=== PATIENT | female | born 1985 | race Caucasian/White ===

== ENCOUNTER → 2020-12-11 | Outpatient (CLI) | payer OTHER ==
[~2020-12-11] MED LIST: ALPR0.5T PO; CARI350T PO; DEXT20TA2 PO
[2020-12-11 14:07] LABS: BASO % 0 % (0-3); EOS # 0.2 x10^3/uL (0.0-0.7); EOS % 2 % (0-3); HEMATOCRIT 42.9 % (36.0-47.0); HEMOGLOBIN 14.9 g/dL (12.0-15.5); LYMPH # 2.7 x10^3/uL (1.0-4.8); LYMPH % 28 % (24-48); MEAN CORPUSCULAR HEMOGLOBIN 32 pg (25-35); MEAN CORPUSCULAR HGB CONC 35 g/dL (31-37); MEAN CORPUSCULAR VOLUME 93 fL (79-100); MONO # 0.5 x10^3/uL (0.0-1.1); MONO % 6 % (0-9); NEUT # 6.2 x10^3/uL (1.8-7.7); NEUT % 65 % (31-73); PLATELET COUNT 233 x10^3/uL (140-400); RED CELL DISTRIBUTION WIDTH 12.9 % (11.5-14.5); WHITE BLOOD COUNT 9.6 x10^3/uL (4.0-11.0)
[2020-12-11 14:21] LABS: ALBUMIN/GLOBULIN RATIO 1.2 (1.0-1.7); CALCIUM 8.6 mg/dL (8.5-10.1); CREATININE 0.8 mg/dL (0.6-1.0); GFR 81.2; POTASSIUM 4.1 mmol/L (3.5-5.1); TOTAL BILIRUBIN 0.2 mg/dL (0.2-1.0); TOTAL PROTEIN 7.4 g/dL (6.4-8.2)
[2020-12-11 14:28] LABS: BILIRUBIN,URINE NEGATIVE (NEG); CLARITY,URINE CLOUDY; COLOR,URINE YELLOW; NITRITE,URINE NEGATIVE (NEG); PH,URINE 7.5 (<5.0-8.0); PROTEIN,URINE NEGATIVE (NEG-TRACE); UROBILINOGEN,URINE 0.2 mg/dL (0.2 mg/dL)
[2020-12-11 14:41] LABS: AMORPHOUS SEDIMENT,UR PRESENT /HPF
[2020-12-11 14:42] LABS: BACTERIA,URINE 0 /HPF (0-FEW); RBC,URINE 0 /HPF (0-2); WBC,URINE 0 /HPF (0-4)
== END ==
LOC: SURGPAT 12:58
PROVIDERS: ATTEND Obstetrics & Gynecology
DX: Z01.812 Encounter for preprocedural laboratory examination (principal); Z20.822 Contact with and (suspected) exposure to COVID-19
CPT/HCPCS: 80053; 81001; 85025; U0003; U0005

== ENCOUNTER 2020-12-17 06:29 | Observation (INO) | payer OTHER ==
[2020-12-11 13:57] VITALS: BP 118/65
[~2020-12-17] VITALS: Ht 157.5 cm; Wt 68.0 kg
[2020-12-17] VITALS (10 sets, daily range): BP systolic 85–121; BP diastolic 53–80
[~2020-12-17 06:29] MED LIST changes: +HYDROmorphone 2 MG/ML VIAL IVP PRN; +IV RINGERS,LACTATED 1000ML 1,000 ML IV SCH; +PROCHLORPERAZINE 10 MG/2 ML VIAL. IVP PRN; +fentaNYL PF VIAL 100 MCG/2 ML VIAL IVP PRN
[2020-12-17] MEDS ORDERED: BUPIVACAINE-EPI 0.25% 30 ML VIAL KIT. ONE (07:21)
[2020-12-17] MEDS ORDERED: INDIGOTINDISULFONATE SODIUM 40 MG/5 ML AMPUL. ONE (07:22)
[2020-12-17] MEDS ORDERED: ESTROGENS, CONJ VAGINAL CREAM 30GM TUBE. ONE (07:22)
[2020-12-17] MEDS ORDERED: ROCURONIUM 50 MG/5 ML VIAL. ONE (07:24)
[2020-12-17] MEDS ORDERED: MIDAZOLAM HCL/PF 2 MG/2 ML VIAL. ONE (07:37)
[2020-12-17] MEDS ORDERED: LIDOCAINE 2% PF 5 ML VIAL. ONE ×2 (08:12→10:08)
[2020-12-17] MEDS ORDERED: KETOROLAC 30 MG/ML VIAL. ONE (08:12)
[2020-12-17] MEDS ORDERED: PROPOFOL 10 MG/ML (20ML) VIAL. IV ONE (08:12)
[2020-12-17] MEDS ORDERED: SEVOFLURANE 61 TO 120 MINUTES. IH ONE (08:13)
[2020-12-17] MEDS ORDERED: ONDANSETRON PF 4 MG/2 ML VIAL. ONE (08:13)
[2020-12-17] MEDS ORDERED: DEXAMETHASONE SOD PHOS 4 MG/ML VIAL ONE (08:13)
[2020-12-17] MEDS ORDERED: ESMOLOL 100 MG/10 ML VIAL. IVP ONE (08:22)
[2020-12-17] MEDS ORDERED: fentaNYL PF VIAL 100 MCG/2 ML VIAL ONE (08:29)
[2020-12-17] MEDS ORDERED: GLYCOPYRROLATE 1 MG/5 ML VIAL. ONE (08:30)
[2020-12-17] MEDS ORDERED: NEOSTIGMINE METHYLSULFATE 5 MG/5 ML SYRINGE. ONE (08:30)
[2020-12-17] MEDS ORDERED: PHENYLEPHRINE in 0.9% NACL PF 1 MG/10 ML SYRINGE. IV ONE ×2 (08:34→09:46)
[2020-12-17] MEDS ORDERED: ePHEDrine PF IN SALINE 50 MG/10 ML SYRINGE. IV ONE (08:54)
[2020-12-17] MEDS ORDERED: MAG HYDROX/ALUMINUM HYD/SIMETH 30 ML ORAL.SUSP PO PRN (10:30)
[2020-12-17] MEDS ORDERED: LACTULOSE 20 GM/30 ML SOLUTION. PO PRN (10:30)
[2020-12-17] MEDS ORDERED: ONDANSETRON PF 4 MG/2 ML VIAL. IV PRN (10:30)
[2020-12-17] MEDS ORDERED: MAGNESIUM HYDROXIDE 2,400 MG/30 ML ORAL.SUSP. PO PRN (10:30)
[2020-12-17] MEDS ORDERED: NALOXONE 0.4 MG/ML VIAL. IV PRN (10:30)
[2020-12-17] MEDS ORDERED: MORPHINE SULFATE 2 MG/ML VIAL. IV PRN (10:30)
[2020-12-17] MEDS ORDERED: ZOLPIDEM 5 MG TABLET. PO PRN (10:30)
[2020-12-17] MEDS ORDERED: SIMETHICONE 80 MG TAB.CHEW PO PRN (10:30)
[2020-12-17] MEDS ORDERED: diphenhydrAMINE 50 MG/ML VIAL IV PRN (10:30)
[2020-12-17] MEDS ORDERED: CALCIUM CARBONATE 500 MG TAB.CHEW PO PRN (10:30)
[2020-12-17] MEDS ORDERED: diphenhydrAMINE HCL 25 MG CAPSULE PO PRN (10:30)
[2020-12-17] MEDS ORDERED: 0.9 % SODIUM CHLORIDE 10 ML DISP.SYRIN. IV PRN (10:30)
[2020-12-17] MEDS ORDERED: HYDROcodone/APAP 5/325MG 1 TAB TABLET PO PRN (10:30)
[2020-12-17] MEDS ORDERED: MORPHINE SULFATE 2 MG/ML VIAL. ONE ×2 (10:38→10:58)
[2020-12-17] MEDS: MORPHINE SULFATE 2 MG/ML VIAL. IVP PRN ×4 (10:40→11:11)
--- NOTE | 2020-12-17 10:40 | PDOC ---
BRIEF OPERATIVE NOTE Date: December 17, 2020 Pre-Op Diagnosis DENILSON 2 Post-Op Diagnosis same Procedure Performed LAVH with bilateral salpingectomy Surgeon Dr. Kimbrough Industrial Hygenist ELIU Hoffman Anesthesiologist Dr. Sánchez Anesthesia Type: General Blood Loss 350cc IV Fluid 1400cc Urine Output 130cc clear via woodall Specimens Obtained cervix, uterus, bilateral tubes Findings both tubes with fallop rings, normal uterus, normal appendix, grossly normal bowel Complications none Operative Note [id number] DIANE KIMBROUGH MD December 17, 2020 10:40
[2020-12-17] MEDS ORDERED: HYDROmorphone 2 MG/ML VIAL ONE (11:24)
--- NOTE | 2020-12-17 11:50 | OP ---
DATE OF SURGERY: 12/17/2020 PREOPERATIVE DIAGNOSIS: Cervical intraepithelial neoplasia 2 on colposcopy, desiring definitive therapy. POSTOPERATIVE DIAGNOSIS: Cervical intraepithelial neoplasia 2 on colposcopy, desiring definitive therapy. PROCEDURE: Laparoscopic-assisted vaginal hysterectomy, bilateral salpingectomy. SURGEON: Dr. Teresa Kimbrough. ELECTRON BEAM OPERATOR: ELIU Pedroza ANESTHESIOLOGIST: Syed Sánchez MD ANESTHESIA: General. ESTIMATED BLOOD LOSS: 350 mL. URINE OUTPUT: 130 mL cleared via Burden catheter. INTRAVENOUS FLUIDS: 1400 mL of crystalloid. SPECIMENS: Cervix, uterus and bilateral tubes. FINDINGS: Normal uterus, tubes and ovaries. Both tubes had evidence of prior tubal ligation with Falope rings. Normal appendix. Grossly normal bowel. COMPLICATIONS: None. No significant adhesive disease. DESCRIPTION OF PROCEDURE: The patient was taken to the operating room where general anesthesia was placed. The patient was placed in the dorsal lithotomy position in Andrea stirrups. The patient's abdomen and vagina were both prepped and draped in the normal sterile fashion and a Burden catheter had been inserted under sterile technique. Upon my arrival, once everyone agreed, a timeout was performed. Once everyone agreed on the patient, the site, the procedure, the antibiotics; the procedure was initiated. A bivalved speculum was placed in the patient's vagina. A single-tooth tenaculum was used to grasp the anterior lip of the cervix. A 10 mL of 0.25% Marcaine with epinephrine was used to circumferentially inject around the cervix for both hemodissection and hemostatic purposes later. The Valtchev uterine manipulator was placed through the endocervical os, locked on the single tooth tenaculum and the bivalve speculum was then removed. Top gloves were discarded and changed. Attention was then turned to the abdomen where a small infraumbilical skin incision was made. Prior to making the incision, it was then injected with 0.25% Marcaine with epinephrine injection. Then, a curved Narcisa was used to dissect through the subcuticular layer of the fascia. The 5 mm Visiport was used to directly enter the abdominal cavity. Opening patient pressure was 3-4 mmHg. Carbon dioxide gas was used to then appropriately insufflate the abdominal cavity to maintain a pressure of 15 mmHg. Direct abdominal placement was confirmed via the laparoscope. The right and left lower quadrant ports were placed. There were no adhesions on the anterior abdominal wall, transilluminating the abdominal wall, finding an area clear of any vasculature, injecting with the local, making a small incision and placing the 5 mm disposable trocar under direct visualization. This was done on both sides. Then, using the syringe with 4-5 mL of air to insufflate the trocar cuff. The camera was then moved laterally and looked at the umbilical port. Once it was assured to be in the right spot, it was also insufflated with 4-5 mL of air in the cuff. The patient was placed in Trendelenburg position, overhead lights were dimmed with the above findings. Left tube and ovary were elevated. The ureter could be seen coursing low in the pelvis with normal anatomy, so the tube and ovary were elevated. Going below the tube above the ovary using the LigaSure to cauterize and cut doing the salpingectomy over towards the uterus, crossing the left uteroovarian pedicle, cauterizing and cutting in the left round ligament. This was done exactly the same on the right side, elevating the right tube and ovary. Again, both tubes had evidence of prior tubal ligation with Falope ring. Finding the ureter coursing low in the pelvis, but going above the ovary below the tube doing the salpingectomy crossing the right ovarian pedicle, cauterizing and cutting in the right round ligament. The uterus was then pushed cephalad toward the head of the bed. The bladder flap was elevated with the [place] and the reflection and then the monopolar hook was used to cut across and take down the bladder sharply. Once this was done, the uterine vessels were obtained on the right side, staying inside that pedicle, going through the cardinal and broad ligaments, hugging the posterior cervix, and then crossing contralaterally, going vertical. After the cornua of the uterus, hugging and getting the vessels going through the cardinal and broad ligaments down to the level of the uterosacral on the left. The uterus was completely free and blanched. At this point, all instruments were removed from the abdomen and attention was turned vaginally and there was no blood loss above. A single-tooth and Valtchev were removed. Weighted speculum was placed in the patient's vagina. Thyroid Hair clamps were placed on the anterior and posterior lips of the cervix respectively. Scalpel was used to make a circumferential incision in the cervix. The bladder reflection was dissected sharply and bluntly using the tip of the suction to gently push up and sharply taking it off the cervix and then using an open Ray-Abhi 4 x 4 to gently push up and enter the anterior cul-de-sac. The Ray-Abhi was taken out and the Rita was placed in the anterior cul-de-sac. The cervix was elevated and the posterior cul-de-sac was sharply entered with curved Lema scissors and #0 Vicryl stitch was used to secure the posterior peritoneum here to the vaginal cuff, tagged with a straight Narcisa clamp and needle was cut and passed off. Once this was done, the short weighted vaginal speculum was removed and replaced with the long weighted Loretta speculum in the posterior cul-de-sac. The left uterosacral ligament was doubly clamped with curved Heaneys, cut with curved Lema scissors and suture ligated x2. Second one was tied to the vaginal cuff, tagged with a straight Narcisa clamp and the needle was cut and passed off. This was done exactly the same on the patient's right side. Double clamped in the uterosacrals with curved Heaneys, cutting with curved Lema scissors, suture ligating x2 with 0 Vicryl, taking the second one through the vaginal cuff, securing uterosacral ligament to the vaginal cuff, tagging it with a straight Narcisa clamp and cutting and passing the needle off. The remaining pedicle on the left side was delineated with the right angle Mixter. The vaginal LigaSure was used to cauterize and cut it, this side was completely free. The remaining pedicle on the right side was easily delineated again with the right angle Mixter. Vaginal LigaSure was used and 3 or 4 bites to cauterize and cut small bites until it was free. Cervix, uterus and bilateral tubes were delivered in total and passed off for permanent pathology. There was some slight bleeding noticed on the right side up high. Once the uterus out, it was not evident. So I used the sponge stick to examine all the pedicles. They appeared to be dry. I did reinforce the uterosacral on that side with a Burlisher, placing a stitch in it. Everything looked good. I used a sponge stick to clear out any debris in the cul-de-sac. So at this point, the long Loretta speculum was removed and replaced with the short weighted vaginal speculum. 2-0 Vicryl was used to go through the anterior bladder peritoneum, left uterosacral ligament, posterior peritoneum and right uterosacral ligament, thus closing the peritoneum in a pursestring like fashion. At this point, the vaginal cuff was going to be closed in an anterior to posterior running locked fashion. This is when I could see that bleeding from the right side. It was under between the bladder and the bladder reflection. There was a bleeder up high. I was able to find it, grabbed it with a Burlisher and placed a stitch in it with excellent results, but it was difficult to see as it was high and almost retracted up high, but once we got it, I got a Burlisher on it, I could get a stitch in it and it resolved. The right and left uterosacral tags were clipped once the peritoneal pursestring stitch was placed. The cuff was closed in an anterior to posterior running locked fashion with a full length 2-0 Vicryl and tied to the posterior cuff tagged. The vaginal cuff was examined several times and found to be hemostatic, so all instruments were correct x2 by OR personnel before going above. All gloves were discarded and changed. Attention was turned back above where a second look where she was placed back in Trendelenburg, overhead lights were re-dimmed ad gas was reinsufflated. There was some very slight bleeding from the left inferior cuff edge that could be seen with irrigation. LigaSure was used to barely cauterize the edge with excellent results. Tisseel was placed with excellent results and it was watched for several seconds. I even deflated the gas to make sure there was no rundown and everything looked good and it looked good. So at this point, watching it, going over and deflating the all 3 trocars from the 4-5 mL of air. Looking at the cuff again, making sure it was good. Right and left pericolic gutters were clear. Appendix looked normal. Everything remained hemostatic even releasing the gas, so right and left lower quadrant ports were removed under direct visualization. They were hemostatic as well. Took 1 last look at the cuff, it still was hemostatic with the Tisseel on it. Everything looked great, so the gas was released from the umbilical port. All 3 port sites were closed with 4-0 nylon. Burden was taken out. The patient was awakened from anesthesia and was brought to recovery room in stable condition. TONIE/FABIO/TIERA DR: Marc TID: [id number]
[2020-12-17] MEDS: oxyCODONE/APAP 5/325 1 TAB TABLET PO PRN ×2 (12:46→17:01)
[2020-12-17 18:07] LABS: HEMOGLOBIN 12.2 g/dL (12.0-15.5)
--- NOTE | 2020-12-21 15:13 | PATHOLOGY ---
[facility] Accession Number: [id number] . 01 Material submitted: . uterus - CERVIX UTEREUS BILATERAL TUBES . 01 Clinical history: . CERVICAL INTRAEPITHELIAL NEOPLASIA (CINII) IRREGULAR MENSES LAVH,POSSIBLE BSD . 02 Diagnosis: Uterus and attached bilateral fallopian tubes, laparoscopic assisted vaginal hysterectomy with bilateral salpingectomy: - SEVERE DYSPLASIA/CARCINOMA IN SITU (DENILSON III), WITH FOCAL SUPERFICIAL ENDOCERVICAL GLANDUALR EXTENSION, INVOLVING THE 12-3:00, 6-9:00, AND 9-12:00 QUADRANTS. - EXOCERVICAL AND DEEP MARGINS NEGATIVE FOR DENILSON III. - Chronic cervicitis with squamous metaplasia. - Nabothian cysts, cervix. - Secretory endometrium. - Adenomyosis, uterine corpus, sub-basal, focal. - Congestion and presence of tubal clamps of bilateral fallopian tubes. [facility] 12/21/2020 1039 Local . 02 Comment: The entire cervix is submitted for histologic evaluation. There are extensive areas of DENILSON III involving the 12-3:00, 6-9:00, and 9-12:00 quadrants of uterine cervix. There is no evidence of invasive carcinoma. The exocervical and deep margins are negative for DENILSON III. (JPM/db; 12/21/2020) . 02 Electronically signed: . Germán Frias MD, Pathologist NPI- [id number] . 01 Gross description: . Fixative: Formalin Labeled: Cervix, uterus, bilateral tubes Specimen received: A previously opened uterus and cervix with attached bilateral fimbriated fallopian tubes Uterus weight: 81 g Uterus: 7.3 cm (superior to inferior), 5.5 cm (cornu to cornu), and 4.0 cm (anterior to posterior) Serosa: Smooth pink-latham Ectocervix: Congested/hemorrhagic pink-latham Cervical os: Previously opened, measuring 1.3 cm Endocervical canal: 2.6 cm in length 0.4-0.5 cm in width. Congested pink-latham. Endometrial cavity: 3.5 cm in length and 0.5-1.3 cm in width. Congested pink-latham. Endometrial thickness: 0.1-0.2 cm Myometrial thickness: 1.5-2.0 cm Lesions/abnormalities: Sectioning of the cervix reveals congested pink-latham cut surfaces with multiple ectocervix cyst ranging from 0.2-0.3 cm. There is a possible biopsy site at the 12:00 to 3:00 cervix measuring 0.5 x 0.4 x 0.4 cm. Sectioning of the uterus reveals pink-latham cut surfaces with no whorled pattern lesions. Right fallopian tube: 5.0 cm in length, 0.4-0.7 cm in diameter with attached fimbria measuring 1.5 x 0.7 x 0.6 cm Right fallopian tube appearance: Congested pink-latham with a paratubal cyst measuring 0.3 cm filled with clear fluid and a white plastic sterilization clamp measuring 0.5 x 0.4 x 0.3 cm. Left fallopian tube: 5.0 cm in length, 0.3-0.7 cm in diameter, and fimbria measuring 1.2 x 0.7 x 0.6 cm. Left fallopian tube appearance: [place]-latham with no grossly apparent lesions with a white plastic sterilization clamp measuring 0.5 x 0.4 x 0.3 cm. The anterior cervix is inked blue and the posterior cervix is inked black. The cervix is entirely submitted. The uterus and fallopian tubes are representatively submitted. A1 thru A30. A1 thru A5 - cervix 12:00 to 3:00 (blue ink, anterior) A6 thru A9 - cervix 3:00 to 6:00 (black ink, posterior) A10 thru A14 - cervix 6:00 to 9:00 (blue ink, anterior) A15 thru A20 - cervix 9:00 to 12:00 (black ink, posterior) A21 and A22 - anterior endomyometrium A23 and A24 -posterior endomyometrium A25 - anterior para-uterus tissue A26 - posterior para-uterus tissue A27 - right fallopian tube (3 cross sections, paratubal cyst, and perpendicular section of fimbria) A28 - left fallopian tube (3 cross sections and perpendicular section of fimbria) A29 - anterior lower uterus/upper cervix A30 - posterior lower uterus/upper cervix (BLJ; 12/17/2020) BLJ/J 12/17/2020 2224 Local . 02 Pathologist provided ICD-10: D07.0, N72, N80.0 . 02 CPT . 477259 Specimen Comment: A courtesy copy of this report has been sent to [phone], [phone] Specimen Comment: [id number] Specimen Comment: Report sent to / DR FRASER Performed at: 01 [facility] [address], [place] [id number] MD Dwight Barbosa MD Phone: [phone] Performed at: 02 [facility] [address] [place], [place] [id number] MD Germán Frias MD Phone: [phone]
== END 2020-12-17 20:10 | disposition home or self-care (01) ==
LOC: SURG 06:29 → 3 SO LND 10:30
PROVIDERS: ADMIT Obstetrics & Gynecology; ATTEND Obstetrics & Gynecology
DX: N87.1 Moderate cervical dysplasia (principal); F31.9 Bipolar disorder, unspecified; F19.20 Other psychoactive substance dependence, uncomplicated; Z68.25 Body mass index [BMI] 25.0-25.9, adult; Z79.899 Other long term (current) drug therapy
CPT/HCPCS: 36415; 58552; 81025; 85014; 85018; 86850; 86900; 86901; 88309; 96360; 96361; A4213; A4314; A4930; G0378; G0379; J0690; J1100; J1170; J1885; J2250; J2270; J2370; J2405; J2704; J2710; J3010; J3480; J3490; A4351; A4657